=== PATIENT | male | born 1985 | race Caucasian/White ===

== ENCOUNTER 2024-03-19 02:14 | Day surgery (SDC) | payer BC, SELFPAY ==
[2024-02-25 14:40] VITALS: BMI 27.8
[2024-03-19 10:33] VITALS: BP 129/91; PULSE 59; RESP 16; TEMP 36; O2SAT 100; BMI 27.1
--- NOTE | 2024-03-19 10:39 | WPDANESEPPF ---
Anes - Initial Pre Proc Eval Procedure: Operation Date: 03/19/24 15:30 Proposed Procedures p Colonoscopy - Omero Jean MD Date/Time: 03/19/24 10:39 Surgeon: Omero Jean MD Pre Op Diagnosis: Hemorrhage of anus/rectum Patient Data Age: 39 Gender: M Height: 1.73 m Weight: 80.9 kg Last Vital Signs Temp 96.8 F L 03/19/24 10:33 Pulse 59 L 03/19/24 10:33 Resp 16 03/19/24 10:33 BP 129/91 H 03/19/24 10:33 Pulse Ox 100 03/19/24 10:33 O2 Del Method Room Air 03/19/24 10:33 Allergies Allergy/AdvReac Type Severity Reaction Status Date / Time No Known Allergies Allergy Verified 03/19/24 10:32 Home Medications Medication Instructions Recorded Confirmed Type albuterol sulfate 90 mcg/actuation 2 puff inhalation Q4H PRN sob 02/12/24 03/19/24 History aerosol inhaler Patient hx anesthesia problems: none Family hx anesthesia problems: none Results Review: All pre-operative results and documents have been reviewed as part of the pre-operative evaluation. [facility] Surgical History Surgical History H/O vasectomy History of bilateral carpal tunnel release Social History Social History Smoking status: Never smoker Alcohol intake: never Substance use: never Substance use type: does not use Living arrangements: with family Spiritual care concerns: No Anes - Eval Final PreProcedure Day of Procedure 03/19/24 10:39 Patient weight: normal Heart: regular rate and rhythm Lungs: clear to auscultation Airway: Mallampati scale class II Neurological: alert and oriented Last oral intake: >/= 8 hours ASA classification: II Emergent: no Anesthetic plan: proceed Anesthesia type and monitoring: general GIVS and standard monitoring Results Review: All pre-operative results and documents have been reviewed as part of the pre-operative evaluation. Informed Consent: The patient's anesthetic plan and its attendant risks and benefits were discussed with the patient/family/POA. Questions were solicited and answers provided to the satisfaction of the patient/family/POA.
[2024-03-19] MEDS: LACTATED RINGERS 1,000 ML 150 ML IV CONT (10:41)
--- NOTE | 2024-03-19 11:02 | PM.HPGS ---
History of Present Illness History of Present Illness Consent: Risks, benefits, and alternatives have been discussed and questions answered. Patient agrees to proceed with procedure. Chief complaint: Hemorrhage of anus/rectum Narrative: Caio Harrell is a 39 year old male here for first colonoscopy, h/o intermittent rectal bleeding Review of Systems Review of Systems: All systems reviewed & are unremarkable except as noted in HPI and below PMFSH Surgical History Surgical History H/O vasectomy History of bilateral carpal tunnel release Social History Social History Smoking status: Never smoker Alcohol intake: never Substance use: never Substance use type: does not use Living arrangements: with family Spiritual care concerns: No Meds Home Medications and Allergies Home Medications Medication Instructions Recorded Confirmed Type albuterol sulfate 90 mcg/actuation 2 puff inhalation Q4H PRN sob 02/12/24 03/19/24 History aerosol inhaler Allergies Allergy/AdvReac Type Severity Reaction Status Date / Time No Known Allergies Allergy Verified 03/19/24 10:32 Vital Signs Vital Signs - 24 hr 03/19/24 10:33 Temperature 96.8 F L Pulse Rate 59 L Respiratory Rate 16 Blood Pressure 129/91 H Pulse Oximetry 100 Oxygen Delivery Room Air Exam Const: General: comfortable and no acute distress HENMT: Face/Nose/Sinus: Normal nares present Eyes: General: appearance normal, both eyes and all related structures Neck: Neck: no JVD Resp: Auscultation: clear to auscultation bilaterally Cardio: Rate: regular rate Rhythm: regular rhythm GI: Inspection: non-distended GI Palp: Yes Soft to palpation Skin: General skin exam: normal color Neuro: General: gait normal Speech: normal speech Extrem: General: normal to inspection Psych: Mental Status: mental status grossly normal Assessment and Plan Assessment and plan (1) Rectal bleeding: Code(s): K62.5 - Hemorrhage of anus and rectum Status: Acute Assessment and Plan: colonoscopy
[2024-03-19 12:28] VITALS: BP 108/67; PULSE 78; RESP 15; O2SAT 96
[2024-03-19 12:38] VITALS: BP 111/69; PULSE 70; RESP 14; O2SAT 97
[2024-03-19 12:48] VITALS: BP 106/74; PULSE 63; RESP 14; O2SAT 98
== END 2024-03-19 13:00 | disposition home or self-care (01) ==
PROVIDERS: PCP Emergency Medicine; Referring Provider Nurse Practitioner Family; Visit Provider Internal Medicine Gastroenterology
PROC: 0DJD8ZZ Inspection of Lower Intestinal Tract, Via Natural or Artificial Opening Endoscopic (ICD-10-PCS; CPT 45378; principal; 2024-03-19 15:30)
DX: K57.30 Diverticulosis of large intestine without perforation or abscess without bleeding (principal); K64.8 Other hemorrhoids; Z79.51 Long term (current) use of inhaled steroids
CPT/HCPCS: 45378; J2704; J7120